=== PATIENT | female | born 1985 | race American Indian/Alaskan Native ===

== ENCOUNTER 2018-04-26 19:02 | Emergency (ER) | payer MEDICAID ==
[2018-04-26 19:49] LABS: Basophils % (Auto) 0.5 % (0.0-1.8); Eosinophils # (Auto) 0.4 K/mm3 (0.0-0.4); Eosinophils % (Auto) 7.4 % (0.0-4.3); Lymphocytes # (Auto) 2.2 K/mm3 (1.2-5.4); Lymphocytes % (Auto) 41.7 % (13.4-35.0); Mean Corpuscular HGB Conc 29 % (30-34); Monocytes # (Auto) 0.5 K/mm3 (0.0-0.8); Monocytes % (Auto) 9.6 % (0.0-7.3); Platelet Count 266 K/mm3 (140-440); Red Blood Count 4.11 M/mm3 (3.65-5.03)
[2018-04-26 19:51] LABS: Hematocrit 27.2 % (30.3-42.9); Hemoglobin 7.9 gm/dl (10.1-14.3); Mean Corpuscular Hemoglobin 19 pg (28-32); Mean Corpuscular Volume 66 fl (79-97); Red Cell Distribution Width 21.5 % (13.2-15.2)
[2018-04-26 20:02] LABS: Alanine Aminotransferase 38 units/L (7-56); Albumin 3.4 g/dL (3.9-5); BUN/Creatinine Ratio 13; Blood Urea Nitrogen 9 mg/dL (7-17); Calcium 8.3 mg/dL (8.4-10.2); Hemolysis Index 12
[2018-04-26] MEDS ORDERED: PERCOCET 5/325 PO ONE (20:36)
[2018-04-26] MEDS ORDERED: ZOFRAN ODT PO ONE (20:36)
--- NOTE | 2018-04-26 20:46 | Emergency Department Report ---
ED General Adult HPI - General Chief complaint: Headache Stated complaint: HEADACHE Time Seen by Provider: 04/26/18 20:27 Source: patient, family Mode of arrival: Ambulatory Limitations: No Limitations - History of Present Illness Initial comments: Ms. Rizvi is a 32-year-old female with history of anemia and dysfunctional uterine bleeding. She also has a history of GERD. 2 years ago she underwent bariatric surgery [id number]. Recently she had blood transfusion at hospital in [facility] 3 weeks ago. She has not followed up regularly with her bariatric surgeon Dr. Escamilla. She has had 3 total blood transfusions. She has migraine global headache. With photophobia, headache is 8 out of 10. She was diagnosised with migraine for several years. She also had a near syncopal episode prior to coming to the ER. She is currently having vaginal spotting. She does not want to take control or hormone therapy. - Related Data Previous Rx's Medication Instructions Recorded Last Taken Type Promethazine [Phenergan TAB] 25 mg PO Q6HR PRN #10 tab 04/26/18 Unknown Rx traMADol [Ultram 50 MG tab] 50 mg PO Q6HR PRN #10 tablet 04/26/18 Unknown Rx Allergies Allergy/AdvReac Type Severity Reaction Status Date / Time metronidazole [From Flagyl] Allergy throat Verified 07/23/17 10:11 itches and closes ED Review of Systems ROS: Stated complaint: HEADACHE Other details as noted in HPI Comment: All other systems reviewed and negative Constitutional: denies: fever, malaise Respiratory: denies: cough Cardiovascular: denies: chest pain ED Past Medical Hx - Past Medical History Previous Medical History?: Yes Hx Hypertension: No Hx GERD: Yes Hx Liver Disease: No Hx Seizures: No Hx Asthma: No Hx HIV: No Additional medical history: Vaginal delivery x 2, Miscarriage - Surgical History Past Surgical History?: Yes Hx Cholecystectomy: Yes Additional Surgical History: Bariatric surgery 2 years ago - Social History Smoking Status: Never Smoker Substance Use Type: None - Medications Home Medications: Home Medications Medication Instructions Recorded Confirmed Last Taken Type Promethazine [Phenergan TAB] 25 mg PO Q6HR PRN #10 tab 04/26/18 Unknown Rx traMADol [Ultram 50 MG tab] 50 mg PO Q6HR PRN #10 tablet 04/26/18 Unknown Rx ED Physical Exam - General Limitations: No Limitations General appearance: alert, in no apparent distress - Head Head exam: Present: atraumatic, normocephalic - Eye Eye exam: Present: normal appearance - ENT ENT exam: Present: mucous membranes moist - Neck Neck exam: Present: normal inspection - Respiratory Respiratory exam: Present: normal lung sounds bilaterally. Absent: respiratory distress, rales, rhonchi - Cardiovascular Cardiovascular Exam: Present: regular rate, normal rhythm, normal heart sounds. Absent: systolic murmur, diastolic murmur, rubs, gallop - GI/Abdominal GI/Abdominal exam: Present: soft, normal bowel sounds. Absent: distended, tenderness, guarding, rebound - Extremities Exam Extremities exam: Present: normal inspection - Back Exam Back exam: Present: normal inspection - Neurological Exam Neurological exam: Present: alert, oriented X3 - Psychiatric Psychiatric exam: Present: normal affect, normal mood - Skin Skin exam: Present: warm, dry, intact, normal color. Absent: rash ED Course Vital Signs 04/26/18 19:20 Temperature 98.1 F Pulse Rate 80 Respiratory 18 Rate Blood Pressure 131/85 O2 Sat by Pulse 99 Oximetry ED Medical Decision Making - Lab Data Result diagrams: 04/26/18 19:30 04/26/18 19:30 Laboratory Results - last 24 hr 04/26/18 04/26/18 04/26/18 19:30 19:30 19:30 WBC 5.2 RBC 4.11 Hgb 7.9 L Hct 27.2 L MCV 66 L MCH 19 L MCHC 29 L RDW 21.5 H Plt Count 266 Lymph % (Auto) 41.7 H Tama % (Auto) 9.6 H Eos % (Auto) 7.4 H Baso % (Auto) 0.5 Lymph # 2.2 Tama # 0.5 Eos # 0.4 Baso # 0.0 Seg Neutrophils % 40.8 Seg Neutrophils # 2.1 Sodium 141 Potassium 3.9 Chloride 106.0 Carbon Dioxide 27 Anion Gap 12 BUN 9 Creatinine 0.7 Estimated GFR > 60 BUN/Creatinine Ratio 13 Glucose 115 H Calcium 8.3 L Total Bilirubin 0.20 AST 49 H ALT 38 Alkaline Phosphatase 83 Total Protein 6.8 Albumin 3.4 L Albumin/Globulin Ratio 1.0 HCG, Qual Negative - Medical Decision Making 1. Migraine headache typical for patient treated with oral medications in the ED. Prescribed promethazine and tramadol. 2. Dysfunctional uterine bleeding: Patient requires follow [facility] to which she was referred. She did not appear to understand or believe that her fertility and risk of has greatly increased since losing over 100 pounds. She repeatedly declined control or burst hormone therapy. I surmise that she is considering having a child with her life partner. 3. Chronic anemia: I reviewed the past lab results since 2014. Hemoglobin 7.9 today is at baseline for patient. Patient also corroborates that this is a normal number hemoglobin level for her. I am concerned that she has not had close follow-up with her bariatric surgeon. She understands she is at risk for severe vitamin deficiency and malnutrition. Critical care attestation.: If time is entered above; I have spent that time in minutes in the direct care of this critically ill patient, excluding procedure time. ED Disposition Clinical Impression: Migraine headache, Anemia, Near syncope Disposition: TO HOME OR SELFCARE Is pt being admited?: No Does the pt Need Aspirin: No Condition: Stable Instructions: Migraine Headache (ED), Near Syncope (ED), Iron Deficiency Anemia (ED) Prescriptions: Promethazine [Phenergan TAB] 25 mg PO Q6HR PRN #10 tab PRN Reason: Nausea traMADol [Ultram 50 MG tab] 50 mg PO Q6HR PRN #10 tablet PRN Reason: Headache Referrals: GREY MOHR MD [Primary Care Provider] - 3-5 Days MELI ESCAMILLA MD [Staff Physician] - 3-5 Days AIDEN GARSIA MD [Staff Physician] - 3-5 Days Time of Disposition: 20:47
[2018-04-26 21:48] VITALS: BP 126/74
== END 2018-04-26 21:48 | disposition home or self-care (01) ==
LOC: ED 19:02
DX: G43.909 Migraine, unspecified, not intractable, without status migrainosus (principal); D64.9 Anemia, unspecified; K21.9 Gastro-esophageal reflux disease without esophagitis; Z88.8 Allergy status to other drugs, medicaments and biological substances
CPT/HCPCS: 36415; 80053; 84703; 85025; 99283; Q0162

== ENCOUNTER 2021-01-06 03:51 | Emergency (ER) | payer MEDICAID ==
[2021-01-06 04:39] VITALS: BP 132/69
[2021-01-06] MEDS ORDERED: IBUPROFEN 800 MG TAB PO ONE (04:40)
--- NOTE | 2021-01-06 04:49 | Emergency Department Report ---
<ALLISON CUEVAS M - Last Filed: 01/06/21 06:12> ED Female HPI - General Chief complaint: Abdominal Pain Stated complaint: ABDOMINAL PAIN Time Seen by Provider: 01/06/21 04:39 - Related Data Previous Rx's Medication Instructions Recorded Last Taken Type Promethazine [Phenergan] 25 mg PO Q6HR PRN #10 tab 04/26/18 Unknown Rx traMADoL [Ultram 50 MG tab] 50 mg PO Q6HR PRN #10 tablet 04/26/18 Unknown Rx Acetaminophen/Codeine [Tylenol 1 tab PO Q4HR PRN #12 tablet 01/06/21 Unknown Rx /Codeine # 3 tab] Doxycycline Hyclate [Doxycycline 100 mg PO Q12HR #14 tab 01/06/21 Unknown Rx Hyclate TAB] Fluconazole (Nf) [Diflucan TAB] 150 mg PO ONCE #3 tablet 01/06/21 Unknown Rx Valacyclovir HCl [Valtrex] 1,000 mg PO BID #14 tablet 01/06/21 Unknown Rx metroNIDAZOLE [metroNIDAZOLE 1 applicator VG QHS 5 Days 01/06/21 Unknown Rx VAGINAL 0.75% gel] gel.w.appl Allergies Allergy/AdvReac Type Severity Reaction Status Date / Time metronidazole [From Flagyl] Allergy throat Verified 07/23/17 10:11 itches and closes ED Past Medical Hx - Medications Home Medications: Home Medications Medication Instructions Recorded Confirmed Last Taken Type Promethazine [Phenergan] 25 mg PO Q6HR PRN #10 tab 04/26/18 06/26/20 Unknown Rx traMADoL [Ultram 50 MG tab] 50 mg PO Q6HR PRN #10 tablet 04/26/18 06/26/20 Unknown Rx Acetaminophen/Codeine [Tylenol 1 tab PO Q4HR PRN #12 tablet 01/06/21 Unknown Rx /Codeine # 3 tab] Doxycycline Hyclate [Doxycycline 100 mg PO Q12HR #14 tab 01/06/21 Unknown Rx Hyclate TAB] Fluconazole (Nf) [Diflucan TAB] 150 mg PO ONCE #3 tablet 01/06/21 Unknown Rx Valacyclovir HCl [Valtrex] 1,000 mg PO BID #14 tablet 01/06/21 Unknown Rx metroNIDAZOLE [metroNIDAZOLE 1 applicator VG QHS 5 Days 01/06/21 Unknown Rx VAGINAL 0.75% gel] gel.w.appl ED Medical Decision Making - Lab Data Laboratory Results - last 24 hr 01/06/21 04:33 Urine HCG, Qual Negative ED Disposition Clinical Impression: Bacterial vaginosis, Genital herpes Disposition: DC-01 TO HOME OR SELFCARE Condition: Stable Instructions: Bacterial Vaginosis, [id number]-[id number], Genital Herpes, Bacterial Vaginosis (ED), Abdominal Pain (ED) Additional Instructions: Take the Valtrex and the doxycycline as prescribed. Use to the metronidazole gel as instructed. I recommend that you follow-up with your TUBE TEST TECHNICIAN for HSV 1 and 2 testing via blood work. Take the pain medication as prescribed. Recommend no sexual contact for 7 days. Your partner may also need to be tested and treated. Return to the ER if your symptoms changes or worsens in any way. Prescriptions: metroNIDAZOLE [metroNIDAZOLE VAGINAL 0.75% gel] 1 applicator VG QHS 5 Days gel.w.appl Fluconazole (Nf) [Diflucan TAB] 150 mg PO ONCE #3 tablet Doxycycline Hyclate [Doxycycline Hyclate TAB] 100 mg PO Q12HR #14 tab Acetaminophen/Codeine [Tylenol /Codeine # 3 tab] 1 tab PO Q4HR PRN #12 tablet PRN Reason: Pain Valacyclovir HCl [Valtrex] 1,000 mg PO BID #14 tablet Referrals: [facility] MD RUBA [Primary Care Provider] - 3-5 Days Forms: STI Treatment and Prevention <BRIAN RODRIGUEZ - Last Filed: 01/06/21 06:48> ED Female HPI - General Source: patient Mode of arrival: Ambulatory Limitations: No Limitations - History of Present Illness Initial comments: 35-year-old female presents to the ER today complaining of a 4-day history of left lower quadrant pain, UTI symptoms, vaginal discharge and a painful vaginal rash. Patient does admit to having a new sexual partner, with recent unprotected sexual intercourse a couple weeks ago. Her last menstrual cycle was November 2020. Complaint: vaginal discharge, dysuria, pelvic pain -: Gradual, days(s) (4) ED Review of Systems ROS: Stated complaint: ABDOMINAL PAIN Other details as noted in HPI Comment: All other systems reviewed and negative Constitutional: denies: chills, fever Eyes: denies: eye pain, eye discharge, vision change Gastrointestinal: abdominal pain. denies: nausea, vomiting, diarrhea, constipation, hematemesis, hematochezia Genitourinary: dysuria, discharge. denies: urgency Musculoskeletal: denies: back pain, joint swelling, arthralgia Skin: rash Neurological: denies: headache, weakness, paresthesias Psychiatric: denies: anxiety, depression ED Past Medical Hx - Past Medical History Previous Medical History?: Yes Hx Hypertension: No Hx Congestive Heart Failure: No Hx Diabetes: No Hx GERD: Yes Hx Liver Disease: No Hx Seizures: No Hx Asthma: No Hx COPD: No Hx HIV: No Additional medical history: Vaginal delivery x 2, Miscarriage. Anemia - Surgical History Past Surgical History?: Yes Hx Cholecystectomy: Yes Additional Surgical History: Bariatric surgery 2 years ago - Social History Smoking Status: Never Smoker Substance Use Type: None ED Physical Exam - General Limitations: No Limitations General appearance: alert, in no apparent distress - Head Head exam: Present: atraumatic, normocephalic, normal inspection - Eye Eye exam: Present: normal appearance, PERRL, EOMI Pupils: Present: normal accommodation - Neck Neck exam: Present: normal inspection - Respiratory Respiratory exam: Present: normal lung sounds bilaterally. Absent: respiratory distress - Cardiovascular Cardiovascular Exam: Present: regular rate, normal rhythm, normal heart sounds - GI/Abdominal GI/Abdominal exam: Present: soft, tenderness (Mild ttp RLQ and suprapubic without guarding or rebound. ). Absent: distended - External exam: Present: lesions (very superficial shallow ulceration noted perineal area; Mod ttp ) Speculum exam: Present: vaginal discharge (Thick white d/c). Absent: erythema, cervical discharge, vaginal bleeding, foreign body, tissue Bi-manual exam: Present: adnexal tenderness - Neurological Exam Neurological exam: Present: alert, oriented X3, CN II-XII intact - Psychiatric Psychiatric exam: Present: normal affect, normal mood - Skin Skin exam: Present: intact ED Course Vital Signs 01/06/21 04:33 Temperature 98.1 F Pulse Rate 78 Respiratory 16 Rate Blood Pressure 132/69 O2 Sat by Pulse 100 Oximetry ED Medical Decision Making - Medical Decision Making 0645 The patient is resting comfortably and feels better, is alert and in no distress. The history, exam, diagnostic testing and current condition do not suggest acute appendicitis, bowel obstruction, acute cholecystitis, bowel perforation, major GI bleed, severe diverticulitis, abdominal aortic aneurysm, mesenteric ischemia, volvulus, PID, tubo-ovarian abscess, ovarian torsion, sepsis or other significant pathology to warrant further testing, continued ED treatment, admission or surgical evaluation at this point. The patient's vital signs have been stable. The patient does not have uncontrollable pain, intractable vomiting or other significant symptoms. The patient's condition is stable and appropriate for discharge from the emergency department. The patient will pursue further outpatient evaluation with the primary care physician or other designated or consulting physician as indicated in the discharge instructions. Critical care attestation.: If time is entered above; I have spent that time in minutes in the direct care of this critically ill patient, excluding procedure time. ED Disposition Is pt being admited?: No Does the pt Need Aspirin: No Time of Disposition: 06:35
[2021-01-06] MEDS ORDERED: LIDOCAINE-MPF (1%) 10 MG/1 ML VIAL 5 ML INFILTRATI ONE (05:22)
[2021-01-06] MEDS ORDERED: ACETAMINOPHEN W/CODEINE 300-30 MG TAB PO ONE (05:22)
[2021-01-06 05:58] LABS: HCG Qualitative,Urine Negative (Negative)
[2021-01-06 06:22] LABS: Color,Urine Yellow (Yellow)
[2021-01-06 06:23] LABS: Bilirubin,Urine Negative (Negative)
[2021-01-06 06:29] LABS: Blood,Urine Negative (Negative)
[2021-01-06 06:40] LABS: Bacteria,Urine 1+ /HPF (Negative); Mucus,Urine FEW /HPF
== END 2021-01-06 06:53 | disposition home or self-care (01) ==
LOC: ED 03:51
DX: N76.0 Acute vaginitis (principal); B96.89 Other specified bacterial agents as the cause of diseases classified elsewhere; A60.00 Herpesviral infection of urogenital system, unspecified; Z90.49 Acquired absence of other specified parts of digestive tract; Z88.8 Allergy status to other drugs, medicaments and biological substances
CPT/HCPCS: 81001; 81025; 87210; 87591; 96372; 99284; J0696

== ENCOUNTER 2021-07-06 23:46 | Emergency (ER) | payer MEDICAID ==
[2021-07-07 01:22] LABS: Alanine Aminotransferase 44 units/L (7-56); Albumin 3.7 g/dL (3.9-5); BUN/Creatinine Ratio 14; Blood Urea Nitrogen 11 mg/dL (7-17); Calcium 7.9 mg/dL (8.4-10.2); Hemolysis Index 0; Mean Corpuscular HGB Conc 28 % (30-34); Platelet Count 669 K/mm3 (140-440); Red Blood Count 2.74 M/mm3 (3.65-5.03)
[2021-07-07 01:28] LABS: Hematocrit 17.2 % (30.3-42.9); Hemoglobin 4.8 gm/dl (10.1-14.3); Mean Corpuscular Volume 63 fl (79-97); Red Cell Distribution Width 35.2 % (13.2-15.2)
[2021-07-07] MEDS ORDERED: SODIUM CHLORIDE 0.9% 500 ML 500 ML IV ONE ×2 (02:49→07:49)
[2021-07-07] MEDS ORDERED: ONDANSETRON 4 MG/2 ML INJ IV PRN (04:10)
[2021-07-07] MEDS ORDERED: MAGNESIUM HYDROXIDE (MOM) ORAL LIQD UDC PO PRN (04:10)
[2021-07-07] MEDS ORDERED: MORPHINE 4 MG/1 ML INJ IV PRN (04:10)
[2021-07-07] MEDS ORDERED: ACETAMINOPHEN 325 MG TAB PO PRN (04:10)
[2021-07-07] MEDS ORDERED: MORPHINE 2 MG/1 ML INJ IV PRN (04:10)
--- NOTE | 2021-07-07 04:21 | History and Physical Report ---
History of Present Illness Date of examination: 07/07/21 Date of admission: 07/07/2021 Chief complaint: Abdominal Pain Dysuria History of present illness: 35-year-old -[place] female with past medical history of GERD presenting to the emergency room today complaining of abdominal pain. Abdominal pain has been ongoing for the past 2 to 3 days. She has also been having some dysuria. Patient states that she just does not feel too well today and has showed occasional shortness of breath and dizziness. She has denied any fall, no headache, no fever or chills, no nausea vomiting, no hematuria, no chest pain, no bright red blood per rectum, no diarrhea, no hematemesis. Patient states that she has had occasional periods of heavy bleeding and also her menstrual. Has been occasionally longer than usual. She has 3 children and denies any history of uterine fibroids, denies any history of nonsteroidal anti-inflammatory use. Patient states that she has had history of anemia in the past and had undergone colonoscopy sometime in 2014 at [facility] but indicates that no abnormalities were detected. Work-up in the emergency room today labs reveals hemoglobin of 4.8 and hematocrit of 17.2. Chemistry has been within normal limits. Urinalysis is still being awaited. Patient has been admitted with symptomatic anemia and will be prepared for blood transfusion. Past History Past Medical History: anemia, GERD Past Surgical History: cholecystectomy, Other (History of gastric bypass) Social history: no significant social history Family history: no significant family history Medications and Allergies Allergies Allergy/AdvReac Type Severity Reaction Status Date / Time metronidazole [From Flagyl] Allergy throat Verified 07/23/17 10:11 itches and closes Home Medications Medication Instructions Recorded Confirmed Last Taken Type Promethazine [Phenergan] 25 mg PO Q6HR PRN #10 tab 04/26/18 06/26/20 Unknown Rx traMADoL [Ultram 50 MG tab] 50 mg PO Q6HR PRN #10 tablet 04/26/18 06/26/20 Unknown Rx Acetaminophen/Codeine [Tylenol 1 tab PO Q4HR PRN #12 tablet 01/06/21 Unknown Rx /Codeine # 3 tab] Doxycycline Hyclate [Doxycycline 100 mg PO Q12HR #14 tab 01/06/21 Unknown Rx Hyclate TAB] Fluconazole (Nf) [Diflucan TAB] 150 mg PO ONCE #3 tablet 01/06/21 Unknown Rx Valacyclovir HCl [Valtrex] 1,000 mg PO BID #14 tablet 01/06/21 Unknown Rx metroNIDAZOLE [metroNIDAZOLE 1 applicator VG QHS 5 Days 01/06/21 Unknown Rx VAGINAL 0.75% gel] gel.w.appl Active Meds: Active Medications Acetaminophen (Acetaminophen 325 Mg Tab) 650 mg PO Q4H PRN PRN Reason: Pain MILD(1-3)/Fever >100.5/MOFFETT Magnesium Hydroxide (Magnesium Hydroxide (Mom) Oral Liqd Udc) 30 ml PO Q4H PRN PRN Reason: Constipation Morphine Sulfate (Morphine 2 Mg/1 Ml Inj) 2 mg IV Q4H PRN PRN Reason: Pain, Moderate (4-6) Morphine Sulfate (Morphine 4 Mg/1 Ml Inj) 4 mg IV Q4H PRN PRN Reason: Pain , Severe (7-10) Ondansetron HCl (Ondansetron 4 Mg/2 Ml Inj) 4 mg IV Q8H PRN PRN Reason: Nausea And Vomiting Sodium Chloride (Sodium Chloride 0.9% 10 Ml Flush Syringe) 10 ml IV BID MITCHEL Sodium Chloride (Sodium Chloride 0.9% 10 Ml Flush Syringe) 10 ml IV PRN PRN PRN Reason: LINE FLUSH Review of Systems Constitutional: weakness, no fever, no chills Ears, nose, mouth and throat: no nasal congestion, no sore throat Cardiovascular: lightheadedness, no chest pain, no palpitations Respiratory: shortness of breath, no cough Gastrointestinal: abdominal pain, no nausea, no vomiting, no diarrhea, no hematemesis, no coffee ground emesis, no BRBPR, no melena Genitourinary Female: dysuria, no flank pain, no urinary frequency, no hematuria Menstruation: period heavy (Occasionally) Rectal: no bleeding Musculoskeletal: no neck pain, no low back pain Integumentary: no rash, no pruritis Neurological: no headaches, no confusion Psychiatric: no anxiety, no depression Endocrine: no polydipsia, no polyuria, no nocturia Exam - Constitutional Vitals: Temp Pulse Resp BP Pulse Ox 98.3 F 69 20 101/43 100 07/07/21 00:25 07/07/21 03:59 07/07/21 04:01 07/07/21 03:59 07/07/21 04:01 General appearance: Present: no acute distress, well-nourished, other (Moderate pallor) - EENT Eyes: Present: PERRL, EOM intact. Absent: scleral icterus ENT: hearing intact, clear oral mucosa, dentition normal - Neck Neck: Present: supple, normal ROM - Respiratory Respiratory effort: normal Respiratory: bilateral: CTA - Cardiovascular Rhythm: regular Heart Sounds: Present: S1 & S2, systolic murmur (Soft systolic murmur). Absent: gallop, diastolic murmur, rub, click - Extremities Extremities: no ischemia, pulses intact, pulses symmetrical, No edema, normal temperature, normal color, Full ROM Peripheral Pulses: within normal limits - Abdominal General gastrointestinal: Present: soft, tender (Mild suprapubic tenderness, no rebound tenderness, no masses), non-distended, normal bowel sounds. Absent: mass - Integumentary Integumentary: Present: clear, warm, dry, normal turgor. Absent: rash - Musculoskeletal Musculoskeletal: strength equal bilaterally - Psychiatric Psychiatric: appropriate mood/affect, intact judgment & insight, memory intact, cooperative - Neurologic Neurologic: CNII-XII intact, no focal deficits, moves all extremities Results - Labs CBC & Chem 7: 07/07/21 00:30 07/07/21 00:30 Labs: Abnormal lab results 07/07/21 07/07/21 07/07/21 Range/Units 00:30 00:30 03:10 RBC 2.74 L (3.65-5.03) M/mm3 Hgb 4.8 L* (10.1-14.3) gm/dl Hct 17.2 L* (30.3-42.9) % MCV 63 L (79-97) fl MCH 18 L (28-32) pg MCHC 28 L (30-34) % RDW 35.2 H (13.2-15.2) % Plt Count 669 H (140-440) K/mm3 Calcium 7.9 L (8.4-10.2) mg/dL Albumin 3.7 L (3.9-5) g/dL Crossmatch See Detail Assessment and Plan - Patient Problems (1) Symptomatic anemia Current Visit: Yes Status: Acute Plan to address problem: Macrocytic in nature. Etiology is unclear. She has declined a rectal exam. Will check stool Hemoccult. We will also schedule for pelvic ultrasound. Patient will be scheduled for blood transfusion. Consult placed to gastroenterology for evaluation and recommendation. (2) DVT prophylaxis Current Visit: Yes Status: Acute Plan to address problem: Patient placed on sequential compression device. (3) Full code status Current Visit: Yes Status: Acute Plan to address problem: Patient is full code.
--- NOTE | 2021-07-07 04:22 | Emergency Department Report ---
ED Abdominal Pain HPI - General Chief Complaint: Abdominal Pain Stated Complaint: AB DPAIN,CHEST PAIN,BLURRED VISON Time Seen by Provider: 07/07/21 02:39 Source: patient Mode of arrival: Ambulatory Limitations: No Limitations - History of Present Illness Initial Comments: Patient is a 35-year-old F Tongan female with no significant past medical history who is presenting with some lower abdominal discomfort. Patient states that lower abdominal discomfort has been present for the last 2 to 3 days. States there is some mild dysuria. No vaginal discharge or vaginal bleeding. Patient also notes earlier today she has some mild shortness of breath and some chest discomfort as well. She has been feeling some weakness and dizziness as well. Patient is denying any bloody stools melena nausea or vomiting heavy periods. Patient is not having any menstrual bleeding at this time. Severity scale (0 -10): 8 - Related Data Previous Rx's Medication Instructions Recorded Last Taken Type Promethazine [Phenergan] 25 mg PO Q6HR PRN #10 tab 04/26/18 Unknown Rx traMADoL [Ultram 50 MG tab] 50 mg PO Q6HR PRN #10 tablet 04/26/18 Unknown Rx Acetaminophen/Codeine [Tylenol 1 tab PO Q4HR PRN #12 tablet 01/06/21 Unknown Rx /Codeine # 3 tab] Doxycycline Hyclate [Doxycycline 100 mg PO Q12HR #14 tab 01/06/21 Unknown Rx Hyclate TAB] Fluconazole (Nf) [Diflucan TAB] 150 mg PO ONCE #3 tablet 01/06/21 Unknown Rx Valacyclovir HCl [Valtrex] 1,000 mg PO BID #14 tablet 01/06/21 Unknown Rx metroNIDAZOLE [metroNIDAZOLE 1 applicator VG QHS 5 Days 01/06/21 Unknown Rx VAGINAL 0.75% gel] gel.w.appl Allergies Allergy/AdvReac Type Severity Reaction Status Date / Time metronidazole [From Flagyl] Allergy throat Verified 07/23/17 10:11 itches and closes ED Review of Systems ROS: Stated complaint: AB DPAIN,CHEST PAIN,BLURRED VISON Other details as noted in HPI Comment: All other systems reviewed and negative ED Past Medical Hx - Past Medical History Previous Medical History?: Yes Hx Hypertension: No Hx Congestive Heart Failure: No Hx Diabetes: No Hx GERD: Yes Hx Liver Disease: No Hx Seizures: No Hx Asthma: No Hx COPD: No Hx HIV: No Additional medical history: Vaginal delivery x 2, Miscarriage. Anemia - Surgical History Past Surgical History?: Yes Hx Cholecystectomy: Yes Additional Surgical History: Bariatric surgery 2 years ago - Social History Smoking Status: Never Smoker Substance Use Type: None - Medications Home Medications: Home Medications Medication Instructions Recorded Confirmed Last Taken Type Promethazine [Phenergan] 25 mg PO Q6HR PRN #10 tab 04/26/18 06/26/20 Unknown Rx traMADoL [Ultram 50 MG tab] 50 mg PO Q6HR PRN #10 tablet 04/26/18 06/26/20 Unknown Rx Acetaminophen/Codeine [Tylenol 1 tab PO Q4HR PRN #12 tablet 01/06/21 Unknown Rx /Codeine # 3 tab] Doxycycline Hyclate [Doxycycline 100 mg PO Q12HR #14 tab 01/06/21 Unknown Rx Hyclate TAB] Fluconazole (Nf) [Diflucan TAB] 150 mg PO ONCE #3 tablet 01/06/21 Unknown Rx Valacyclovir HCl [Valtrex] 1,000 mg PO BID #14 tablet 01/06/21 Unknown Rx metroNIDAZOLE [metroNIDAZOLE 1 applicator VG QHS 5 Days 01/06/21 Unknown Rx VAGINAL 0.75% gel] gel.w.appl ED Physical Exam - General Limitations: No Limitations General appearance: alert, in no apparent distress - Head Head exam: Present: atraumatic, normocephalic - Eye Eye exam: Present: normal appearance, PERRL, EOMI - ENT ENT exam: Present: mucous membranes moist - Neck Neck exam: Present: normal inspection - Respiratory Respiratory exam: Present: normal lung sounds bilaterally. Absent: respiratory distress, wheezes, rales, rhonchi - Cardiovascular Cardiovascular Exam: Present: regular rate, normal rhythm, normal heart sounds. Absent: systolic murmur, diastolic murmur, rubs, gallop - GI/Abdominal GI/Abdominal exam: Present: soft, tenderness (suprapubic pain), normal bowel sounds. Absent: distended, guarding, rebound - Extremities Exam Extremities exam: Present: normal inspection - Back Exam Back exam: Present: normal inspection - Neurological Exam Neurological exam: Present: alert, oriented X3 - Psychiatric Psychiatric exam: Present: normal affect, normal mood - Skin Skin exam: Present: warm, dry, intact, normal color. Absent: rash ED Course Vital Signs 07/07/21 07/07/21 07/07/21 00:25 03:59 04:01 Temperature 98.3 F Pulse Rate 68 69 Respiratory 18 20 20 Rate Blood Pressure 107/43 Blood Pressure 101/43 [Left] O2 Sat by Pulse 100 100 100 Oximetry ED Medical Decision Making - Lab Data Result diagrams: 07/07/21 00:30 07/07/21 00:30 Lab Results 07/07/21 07/07/21 07/07/21 Range/Units 00:30 00:30 00:30 WBC 6.7 (4.5-11.0) K/mm3 RBC 2.74 L (3.65-5.03) M/mm3 Hgb 4.8 L* (10.1-14.3) gm/dl Hct 17.2 L* (30.3-42.9) % MCV 63 L (79-97) fl MCH 18 L (28-32) pg MCHC 28 L (30-34) % RDW 35.2 H (13.2-15.2) % Plt Count 669 H (140-440) K/mm3 Sodium 138 (137-145) mmol/L Potassium 4.1 (3.6-5.0) mmol/L Chloride 106.6 (98-107) mmol/L Carbon Dioxide 23 (22-30) mmol/L Anion Gap 13 mmol/L BUN 11 (7-17) mg/dL Creatinine 0.8 (0.6-1.2) mg/dL Estimated GFR > 60 ml/min BUN/Creatinine Ratio 14 % Glucose 85 (65-100) mg/dL Calcium 7.9 L (8.4-10.2) mg/dL Total Bilirubin 0.40 (0.1-1.2) mg/dL AST 35 (5-40) units/L ALT 44 (7-56) units/L Alkaline Phosphatase 118 (35-129) units/L Total Protein 6.9 (6.3-8.2) g/dL Albumin 3.7 L (3.9-5) g/dL Albumin/Globulin Ratio 1.2 % Lipase 18 (13-60) units/L HCG, Qual Negative (Negative) Blood Type Crossmatch 07/07/21 Range/Units 03:10 WBC (4.5-11.0) K/mm3 RBC (3.65-5.03) M/mm3 Hgb (10.1-14.3) gm/dl Hct (30.3-42.9) % MCV (79-97) fl MCH (28-32) pg MCHC (30-34) % RDW (13.2-15.2) % Plt Count (140-440) K/mm3 Sodium (137-145) mmol/L Potassium (3.6-5.0) mmol/L Chloride (98-107) mmol/L Carbon Dioxide (22-30) mmol/L Anion Gap mmol/L BUN (7-17) mg/dL Creatinine (0.6-1.2) mg/dL Estimated GFR ml/min BUN/Creatinine Ratio % Glucose (65-100) mg/dL Calcium (8.4-10.2) mg/dL Total Bilirubin (0.1-1.2) mg/dL AST (5-40) units/L ALT (7-56) units/L Alkaline Phosphatase (35-129) units/L Total Protein (6.3-8.2) g/dL Albumin (3.9-5) g/dL Albumin/Globulin Ratio % Lipase (13-60) units/L HCG, Qual (Negative) Blood Type A POSITIVE Crossmatch See Detail - EKG Data -: EKG Interpreted by Me EKG shows normal: sinus rhythm, axis, intervals, QRS complexes, ST-T waves Rate: normal - EKG Data Interpretation: normal EKG - Medical Decision Making Patient is a 35-year-old F Tongan female presenting with some low abdominal discomfort. Hemoglobin noted to be 4.8. Patient states she is very cold does have some fatigue. Per history patient does not have any obvious historical findings consistent with bleeding. States there is no melena or bright red blo od per rectum. She states she does not have heavy menses. The patient's lower abdominal discomfort most consistent with a UTI since she has some dysuria. She has not noticed any blood in her urine. Patient was a very difficult stick. Did have to use ultrasound to get a IV on the patient. 2 attempts were made by myself. Patient is very angry about having to be stuck that many times. Patient have very brittle veins. Patient refused rectal exam. Patient also is refusing to give urine sample at the time of admission. Spoke with hospitalist and we have agreed that the patient does need to be admitted for observation. Critical care attestation.: If time is entered above; I have spent that time in minutes in the direct care of this critically ill patient, excluding procedure time. ED Disposition Clinical Impression: Symptomatic anemia Disposition: DC- TO HOME OR SELFCARE Is pt being admited?: Yes Does the pt Need Aspirin: No Condition: Stable Instructions: Abdominal Pain (ED) Referrals: PRIMARY CARE, [Primary Care Provider] - 3-5 Days
[2021-07-07] MEDS ORDERED: SODIUM CHLORIDE 0.9% 500 ML 500 ML ONE (05:19)
[2021-07-07 07:03] LABS: Bilirubin,Urine NEG (Negative); Blood,Urine NEG (Negative); Color,Urine Yellow (Yellow); Mucus,Urine FEW /HPF; Protein,Urine <15 mg/dL mg/dL (Negative); Urobilinogen,Urine < 2.0 mg/dL (<2.0)
[2021-07-07 07:13] LABS: Total Cells Counted 100
[2021-07-07 07:14] LABS: Anisocytosis 2+; Hypochromasia 2+; Platelet Estimate Consistent w Auto
--- NOTE | 2021-07-07 07:57 | Ultrasound Report ---
ULTRASOUND PELVIS INDICATION: Anemia, R/O Uterine fibroid. TECHNIQUE: Transabdominal. Duplex Color Doppler used: Yes. COMPARISON: None available FINDINGS: Uterus: Present. Size: 7.2 x 4.6 x 5.9 cm. Endometrial complex: Not well evaluated. Mass lesions: None. Additional findings: None. Right Ovary --nonvisualized. Left Ovary--nonvisualized. Urinary Bladder: Normal. Free Fluid: None. Additional Findings: None. IMPRESSION: 1. Uterus grossly unremarkable. Transvaginal exam cannot be performed. 2. Ovaries not visualized. No adnexal abnormality identified. Signer Name: Eyad Woods MD Signed: 07/07/2021 7:53 AM Workstation Name: [id number]
--- NOTE | 2021-07-07 12:18 | Gastroenterology Consultation ---
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 Noted to be anemic with hgb down to 4.8. GI c onsulted for evaluation for anemia. She denies any blood in the stools, melena, or vomiting blood. She had one episode of emesis yesterday. Reports suprapubic pain with dysuria along with vaginal itching. She had last menstrual period 2-3 weeks ago and occasional periods can be heavy. She states she follows with Dr. Goss, outpatient GI clinic and had colonoscopy earlier this year and told it was normal. No prior EGD. She is taking multivitamin. Has not been seeing utility mechanic. Of note, she had similar admission in 2019 for symptomatic anemia with hgb down to 4.3 but no overt GI bleeding symptoms at that time. She reports following up with Dr. Goss after that. Per chart review, she had a sleeve gastrectomy in the past but due to GERD she is now s/p lap Gastro J revision and lengthening of the biliopancreatic limb with Dr. Escamilla in 2017. medication list reviewed. Past History Past Medical History: anemia, GERD Past Surgical History: cholecystectomy, Other (History of gastric bypass) Social history: no significant social history Family history: no significant family history Medications and Allergies Allergies Allergy/AdvReac Type Severity Reaction Status Date / Time metronidazole [From Flagyl] Allergy throat Verified 07/23/17 10:11 itches and closes Home Medications Medication Instructions Recorded Confirmed Last Taken Type Promethazine [Phenergan] 25 mg PO Q6HR PRN #10 tab 04/26/18 06/26/20 Unknown Rx traMADoL [Ultram 50 MG tab] 50 mg PO Q6HR PRN #10 tablet 04/26/18 06/26/20 Unknown Rx Acetaminophen/Codeine [Tylenol 1 tab PO Q4HR PRN #12 tablet 01/06/21 Unknown Rx /Codeine # 3 tab] Doxycycline Hyclate [Doxycycline 100 mg PO Q12HR #14 tab 01/06/21 Unknown Rx Hyclate TAB] Fluconazole (Nf) [Diflucan TAB] 150 mg PO ONCE #3 tablet 01/06/21 Unknown Rx Valacyclovir HCl [Valtrex] 1,000 mg PO BID #14 tablet 01/06/21 Unknown Rx metroNIDAZOLE [metroNIDAZOLE 1 applicator VG QHS 5 Days 01/06/21 Unknown Rx VAGINAL 0.75% gel] gel.w.appl Active Meds: Active Medications Acetaminophen (Acetaminophen 325 Mg Tab) 650 mg PO Q4H PRN PRN Reason: Pain MILD(1-3)/Fever >100.5/MOFFETT Last Admin: 07/07/21 08:44 Dose: 650 mg Documented by: Magnesium Hydroxide (Magnesium Hydroxide (Mom) Oral Liqd Udc) 30 ml PO Q4H PRN PRN Reason: Constipation Morphine Sulfate (Morphine 2 Mg/1 Ml Inj) 2 mg IV Q4H PRN PRN Reason: Pain, Moderate (4-6) Morphine Sulfate (Morphine 4 Mg/1 Ml Inj) 4 mg IV Q4H PRN PRN Reason: Pain , Severe (7-10) Ondansetron HCl (Ondansetron 4 Mg/2 Ml Inj) 4 mg IV Q8H PRN PRN Reason: Nausea And Vomiting Sodium Chloride (Sodium Chloride 0.9% 10 Ml Flush Syringe) 10 ml IV BID MITCHEL Sodium Chloride (Sodium Chloride 0.9% 10 Ml Flush Syringe) 10 ml IV PRN PRN PRN Reason: LINE FLUSH Review of Systems - Review of Systems All systems: negative Constitutional: weakness Ears, Nose, Throat: no difficulty swallowing Cardiovascular: no chest pain Respiratory: shortness of breath Gastrointestinal: abdominal pain, nausea, vomiting, no diarrhea, no constipation, no change in bowel habits, no hematemesis, no coffee ground emesis, no BRBPR, no melena, no hematochezia Musculoskeletal: no joint pain Neurological: weakness Exam - Constitutional Vital Signs: Temp Pulse Resp BP Pulse Ox 98.0 F 71 14 114/59 100 07/07/21 11:07 07/07/21 12:00 07/07/21 12:00 07/07/21 12:00 07/07/21 12:00 General appearance: no acute distress - EENT ENT: hearing intact - Respiratory Respiratory effort: normal - Cardiovascular Rhythm: regular Heart Sounds: Present: S1 & S2 - Gastrointestinal General gastrointestinal: Present: soft, non-tender, non-distended - Integumentary Integumentary: Present: clear - Neurologic Neurological: alert and oriented x3 - Labs CBC & Chem 7: 07/07/21 00:30 07/07/21 00:30 Lab Results: Laboratory Results - last 24 hr 07/07/21 07/07/21 07/07/21 00:30 00:30 00:30 WBC 6.7 RBC 2.74 L Hgb 4.8 L* Hct 17.2 L* MCV 63 L MCH 18 L MCHC 28 L RDW 35.2 H Plt Count 669 H Add Manual Diff Complete Total Counted 100 Seg Neuts % (Manual) 53.0 Lymphocytes % (Manual) 35.0 Monocytes % (Manual) 6.0 Eosinophils % (Manual) 6.0 H Nucleated RBC % Not Reportable Seg Neutrophils # Man 3.6 Band Neutrophils # 0.0 Lymphocytes # (Manual) 2.3 Abs React Lymphs (Man) 0.0 Monocytes # (Manual) 0.4 Eosinophils # (Manual) 0.4 Basophils # (Manual) 0.0 Metamyelocytes # 0.0 Myelocytes # 0.0 Promyelocytes # 0.0 Blast Cells # 0.0 WBC Morphology Not Reportable Hypersegmented Neuts Not Reportable Hyposegmented Neuts Not Reportable Hypogranular Neuts Not Reportable Smudge Cells Not Reportable Toxic Granulation Not Reportable Toxic Vacuolation Not Reportable Dohle Bodies Not Reportable Pelger-Huet Anomaly Not Reportable Yoly Rods Not Reportable Platelet Estimate Consistent w auto Clumped Platelets Not Reportable Plt Clumps, EDTA Not Reportable Large Platelets Not Reportable Giant Platelets Not Reportable Platelet Satelliting Not Reportable Plt Morphology Comment Not Reportable RBC Morphology Not Reportable Dimorphic RBCs Not Reportable Polychromasia Not Reportable Hypochromasia 2+ Poikilocytosis Not Reportable Anisocytosis 2+ Microcytosis 1+ Macrocytosis Not Reportable Spherocytes Not Reportable Pappenheimer Bodies Not Reportable Sickle Cells Not Reportable Target Cells Not Reportable Tear Drop Cells Not Reportable Ovalocytes Not Reportable Helmet Cells Not Reportable [place] Bodies Not Reportable [place] Rings Not Reportable [place] Cells Not Reportable Bite Cells Not Reportable Crenated Cell Not Reportable Elliptocytes Not Reportable Acanthocytes (Spur) Not Reportable Rouleaux Not Reportable Hemoglobin C Crystals Not Reportable Schistocytes Not Reportable Malaria parasites Not Reportable Luis Bodies Not Reportable Hem Pathologist Commnt No Sodium 138 Potassium 4.1 Chloride 106.6 Carbon Dioxide 23 Anion Gap 13 BUN 11 Creatinine 0.8 Estimated GFR > 60 BUN/Creatinine Ratio 14 Glucose 85 Calcium 7.9 L Total Bilirubin 0.40 AST 35 ALT 44 Alkaline Phosphatase 118 Total Protein 6.9 Albumin 3.7 L Albumin/Globulin Ratio 1.2 Lipase 18 HCG, Qual Negative Urine Color Urine Turbidity Urine pH Ur Specific [place] Urine Protein Urine Glucose (UA) Urine Ketones Urine Blood Urine Nitrite Urine Bilirubin Urine Urobilinogen Ur Leukocyte Esterase Urine WBC (Auto) Urine RBC (Auto) U Epithel Cells (Auto) Urine Mucus Blood Type Antibody Screen Crossmatch 07/07/21 07/07/21 03:10 05:35 WBC RBC Hgb Hct MCV MCH MCHC RDW Plt Count Add Manual Diff Total Counted Seg Neuts % (Manual) Lymphocytes % (Manual) Monocytes % (Manual) Eosinophils % (Manual) Nucleated RBC % Seg Neutrophils # Man Band Neutrophils # Lymphocytes # (Manual) Abs React Lymphs (Man) Monocytes # (Manual) Eosinophils # (Manual) Basophils # (Manual) Metamyelocytes # Myelocytes # Promyelocytes # Blast Cells # WBC Morphology Hypersegmented Neuts Hyposegmented Neuts Hypogranular Neuts Smudge Cells Toxic Granulation Toxic Vacuolation Dohle Bodies Pelger-Huet Anomaly Yoly Rods Platelet Estimate Clumped Platelets Plt Clumps, EDTA Large Platelets Giant Platelets Platelet Satelliting Plt Morphology Comment RBC Morphology Dimorphic RBCs Polychromasia Hypochromasia Poikilocytosis Anisocytosis Microcytosis Macrocytosis Spherocytes Pappenheimer Bodies Sickle Cells Target Cells Tear Drop Cells Ovalocytes Helmet Cells [place] Bodies [place] Rings [place] Cells Bite Cells Crenated Cell Elliptocytes Acanthocytes (Spur) Rouleaux Hemoglobin C Crystals Schistocytes Malaria parasites Luis Bodies Hem Pathologist Commnt Sodium Potassium Chloride Carbon Dioxide Anion Gap BUN Creatinine Estimated GFR BUN/Creatinine Ratio Glucose Calcium Total Bilirubin AST ALT Alkaline Phosphatase Total Protein Albumin Albumin/Globulin Ratio Lipase HCG, Qual Urine Color Yellow Urine Turbidity Clear Urine pH 6.0 Ur Specific [place] 1.018 Urine Protein <15 mg/dl Urine Glucose (UA) Neg Urine Ketones Neg Urine Blood Neg Urine Nitrite Neg Urine Bilirubin Neg Urine Urobilinogen < 2.0 Ur Leukocyte Esterase Neg Urine WBC (Auto) 3.0 Urine RBC (Auto) 2.0 U Epithel Cells (Auto) 6.0 Urine Mucus Few Blood Type A POSITIVE Antibody Screen Negative Crossmatch See Detail Assessment and Plan This is a 35 yo female with pmh of GERD, chronic anemia, h/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 Noted to be anemic with hgb down to 4.8. GI con sulted for evaluation for anemia. # Symptomatic anemia - microcytic anemia, acute on chronic - no overt GI bleeding symptoms. - per patient, recent outpatient colonoscopy with Dr. Ana Paula barron. - discussed inpatient stay with EGD to rule out upper GI bleeding source, patient refuses to stay for it and does not want to be admitted. She would rather follow up with her outpatient GI doctor. - advised that she needs to be on iron supplements and may need IV iron infusion. - need to follow up with hematology. - suspect iron deficiency due to h/o gastric bypass and poor absorption and possible heavy menstrual periods. - if she stay for admission, will plan for EGD on Thursday. Keep NPO Mn. - Patient Problems (1) Symptomatic anemia Current Visit: Yes Status: Acute
--- NOTE | 2021-07-07 13:08 | Event Note ---
Date: 07/07/21 Patient seen and examined This is the second visit after midnight This is a 35 yo female with pmh of GERD, chronic anemia, h/o lap gastro J revisi on of prior sleeve gastrectomy presenting to the ED for weakness, subprapubic pain, and dizziness. Noted to be anemic with hgb down to 4.8. Ordered for 2 units of packed RBC GI consulted, no overt active GI bleed Plan for EGD tomorrow
--- NOTE | 2021-07-07 13:39 | Electrocardiograph Report ---
[facility] Test Date: 2021-07-07 Test Time: 00:43:57 Pat Name: JESSICA KNIGHT Department: Room: [place] [address] Gender: F [employer] Rep[employer]r: LOLI : 1985 Requested By: MARY MAURER Order Number: [id number] Reading MD: Claudy Mace Measurements Intervals [place] Rate: 69 P: 57 IA: 151 QRS: 44 QRSD: 82 T: 42 QT: 409 QTc: 438 Interpretive Statements Sinus rhythm No previous ECG available for comparison Electronically Signed On 07-07-2021 13:38:29 EDT by Claudy Mace
[2021-07-07 15:34] VITALS: BP 111/53
[2021-07-07 16:21] LABS: Hematocrit 21.7 % (30.3-42.9); Hemoglobin 6.6 gm/dl (10.1-14.3)
== END 2021-07-08 00:31 | disposition home or self-care (01) ==
LOC: ED 23:46 → UNDOADMOB 07-07 04:10 → 3A 07-07 04:10 → 4A 07-07 20:37 → ED 07-08 00:31
DX: D64.9 Anemia, unspecified (principal); K21.9 Gastro-esophageal reflux disease without esophagitis; Z88.1 Allergy status to other antibiotic agents; Z98.890 Other specified postprocedural states
CPT/HCPCS: 36415; 36430; 76857; 80053; 81001; 83690; 84703; 85007; 85014; 85018; 85025; 86850; 86900; 86901; 86920; 93005; 96360; 96361; 99284; J7040; P9016

== ENCOUNTER 2022-06-17 21:09 | Emergency (ER) | payer MEDICAID ==
[2022-06-18] MEDS ORDERED: SODIUM CHLORIDE 0.9% 1000 ML 1,000 ML IV ONE (09:39)
[2022-06-18 10:14] LABS: HCG Qualitative,Urine Negative (Negative)
[2022-06-18 10:15] LABS: Mean Corpuscular HGB Conc 28 % (30-34); Platelet Count 462 K/mm3 (140-440); Red Blood Count 3.03 M/mm3 (3.65-5.03)
[2022-06-18 10:23] LABS: Hematocrit 18.1 % (30.3-42.9); Mean Corpuscular Volume 60 fl (79-97); Red Cell Distribution Width 28.3 % (13.2-15.2)
[2022-06-18 10:29] LABS: Alanine Aminotransferase 25 units/L (7-56); Albumin 3.4 g/dL (3.9-5); Blood Urea Nitrogen 7 mg/dL (7-17); Calcium 8.1 mg/dL (8.4-10.2); Hemolysis Index 0
[2022-06-18 10:33] LABS: Bilirubin,Urine Negative (Negative); Color,Urine Yellow (Yellow)
[2022-06-18 10:34] LABS: Blood,Urine Negative (Negative); Urobilinogen,Urine < 2.0 mg/dL (<2.0)
[2022-06-18] MEDS ORDERED: SODIUM CHLORIDE 0.9% 500 ML 500 ML IV ONE ×2 (10:34→12:34)
--- NOTE | 2022-06-18 10:38 | Emergency Department Report ---
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 She states that she has been getting progressively weaker over the past several days. She states that she had the same type of symptoms about a year ago when she was anemic. She states that she had her period 2 weeks ago and her period was very heavy and lasted 7 to 8 days. She states that she has a history of recently diagnosed fibroids that her TALENT DEVELOPMENT MANAGER told her is probably the source of her increased vaginal bleeding. She states that she is scheduled to follow-up with her TALENT DEVELOPMENT MANAGER and GI doctor in the next week. MD Complaint: generalized weakness -: Gradual, days(s) (4-5) Location: other (Left lower quadrant) Severity: moderate Severity scale (0 -10): 5 Quality: aching Consistency: intermittent Associated Symptoms: chest pain. denies: confusion, dark stools, diaphoresis, dysuria, easy bruising, fever/chills, headaches, loss of appetite, nausea/vomiting, myalgias, rash, shortness of breath, syncope - Related Data Previous Rx's Medication Instructions Recorded Last Taken Type Promethazine [Phenergan] 25 mg PO Q6HR PRN #10 tab 04/26/18 Unknown Rx traMADoL [Ultram 50 MG tab] 50 mg PO Q6HR PRN #10 tablet 04/26/18 Unknown Rx Acetaminophen/Codeine [Tylenol 1 tab PO Q4HR PRN #12 tablet 01/06/21 Unknown Rx /Codeine # 3 tab] Doxycycline Hyclate [Doxycycline 100 mg PO Q12HR #14 tab 01/06/21 Unknown Rx Hyclate TAB] Fluconazole (Nf) [Diflucan TAB] 150 mg PO ONCE #3 tablet 01/06/21 Unknown Rx Valacyclovir HCl [Valtrex] 1,000 mg PO BID #14 tablet 01/06/21 Unknown Rx metroNIDAZOLE [metroNIDAZOLE 1 applicator VG QHS 5 Days 01/06/21 Unknown Rx VAGINAL 0.75% gel] gel.w.appl Allergies Allergy/AdvReac Type Severity Reaction Status Date / Time metronidazole [From Flagyl] Allergy throat Verified 07/23/17 10:11 itches and closes ED Review of Systems ROS: Stated complaint: ABD PAIN,WEAKNESS,CHEST PAIN Other details as noted in HPI Comment: All other systems reviewed and negative Constitutional: weakness. denies: chills, fever, malaise Eyes: denies: eye pain, eye discharge, vision change ENT: denies: throat pain, congestion Respiratory: denies: cough, orthopnea, shortness of breath, SOB with exertion, SOB at rest, stridor, wheezing Cardiovascular: chest pain. denies: palpitations, dyspnea on exertion, orthopnea, edema, syncope, paroxysmal nocturnal dyspnea Gastrointestinal: abdominal pain. denies: nausea, vomiting, diarrhea, hematemesis, melena, hematochezia Genitourinary: denies: urgency, dysuria Musculoskeletal: denies: back pain Neurological: denies: headache, weakness ED Past Medical Hx - Past Medical History Previous Medical History?: Yes Hx Hypertension: No Hx Congestive Heart Failure: No Hx Diabetes: No Hx GERD: Yes Hx Liver Disease: No Hx Seizures: No Hx Psychiatric Treatment: Yes (anxiety, depression) Hx Asthma: Yes Hx COPD: No Hx HIV: No Additional medical history: Vaginal delivery x 2, Miscarriage. Anemia - Surgical History Past Surgical History?: Yes Hx Cholecystectomy: Yes Additional Surgical History: Bariatric surgery 2 years ago - Social History Smoking Status: Never Smoker Substance Use Type: None - Medications Home Medications: Home Medications Medication Instructions Recorded Confirmed Last Taken Type Promethazine [Phenergan] 25 mg PO Q6HR PRN #10 tab 04/26/18 06/26/20 Unknown Rx traMADoL [Ultram 50 MG tab] 50 mg PO Q6HR PRN #10 tablet 04/26/18 06/26/20 Unknown Rx Acetaminophen/Codeine [Tylenol 1 tab PO Q4HR PRN #12 tablet 01/06/21 Unknown Rx /Codeine # 3 tab] Doxycycline Hyclate [Doxycycline 100 mg PO Q12HR #14 tab 01/06/21 Unknown Rx Hyclate TAB] Fluconazole (Nf) [Diflucan TAB] 150 mg PO ONCE #3 tablet 01/06/21 Unknown Rx Valacyclovir HCl [Valtrex] 1,000 mg PO BID #14 tablet 01/06/21 Unknown Rx metroNIDAZOLE [metroNIDAZOLE 1 applicator VG QHS 5 Days 01/06/21 Unknown Rx VAGINAL 0.75% gel] gel.w.appl ED Physical Exam - General Limitations: No Limitations General appearance: alert, in no apparent distress - Head Head exam: Present: atraumatic, normocephalic - Eye Eye exam: Present: normal appearance. Absent: scleral icterus, conjunctival injection, periorbital swelling, periorbital tenderness - ENT ENT exam: Present: normal exam - Neck Neck exam: Present: normal inspection, tenderness, full ROM. Absent: lymphadenopathy - Respiratory Respiratory exam: Present: normal lung sounds bilaterally. Absent: respiratory distress, wheezes, rales, rhonchi, stridor, chest wall tenderness - Cardiovascular Cardiovascular Exam: Present: regular rate, normal heart sounds - GI/Abdominal GI/Abdominal exam: Present: soft, normal bowel sounds. Absent: distended, tenderness, guarding, rebound, rigid - Extremities Exam Extremities exam: Present: normal inspection, full ROM, normal capillary refill. Absent: tenderness, pedal edema, joint swelling, calf tenderness - Neurological Exam Neurological exam: Present: alert, oriented X3 - Psychiatric Psychiatric exam: Present: normal affect, normal mood - Skin Skin exam: Present: warm, dry, intact, normal color ED Course Vital Signs 06/17/22 06/18/22 06/18/22 22:01 11:59 12:01 Temperature 98.7 F Pulse Rate 73 69 66 Respiratory 16 14 10 L Rate Blood Pressure 115/44 99/48 99/48 O2 Sat by Pulse 100 98 93 Oximetry 06/18/22 06/18/22 06/18/22 12:31 13:01 13:30 Temperature Pulse Rate 69 65 82 Respiratory 17 16 17 Rate Blood Pressure 98/51 100/49 100/49 O2 Sat by Pulse 99 100 Oximetry 06/18/22 06/18/22 06/18/22 13:53 14:00 14:15 Temperature Pulse Rate 62 64 64 Respiratory 13 13 13 Rate Blood Pressure 100/49 106/67 106/67 O2 Sat by Pulse 100 99 100 Oximetry 06/18/22 06/18/22 06/18/22 14:31 14:45 15:01 Temperature Pulse Rate 66 63 62 Respiratory 11 L 14 13 Rate Blood Pressure 100/49 116/56 108/57 O2 Sat by Pulse 100 100 100 Oximetry 06/18/22 06/18/22 06/18/22 15:15 15:31 15:45 Temperature Pulse Rate 61 63 65 Respiratory 9 L 13 11 L Rate Blood Pressure 108/57 110/65 110/65 O2 Sat by Pulse 100 100 100 Oximetry 06/18/22 06/18/22 06/18/22 16:01 16:15 16:31 Temperature Pulse Rate 63 62 61 Respiratory 12 12 12 Rate Blood Pressure 114/64 114/64 121/72 O2 Sat by Pulse 100 100 100 Oximetry - Reevaluation(s) Reevaluation #1: 06/18/22 10:34 Discussed results of H&H with patient and possibility of admission for symptomatic anemia, but patient states that she will not be admitted to the hospital and would rather just follow-up with her primary care provider. Explained to patient multiple risk of not taking blood to include but not limited to and development of more serious complications such as heart failure. I also explained to the patient the risks not being admitted for further treatment and evaluation of possible causes. Patient states that she will take blood in the ER and then be discharged home for further follow-up that she already has planned. 06/18/22 17:16 Reevaluation #2: 06/18/22 17:15 Both units of RBCs completed, patient tolerated well, lungs clear to auscultation with no shortness of breath noted. Patient states that she feels much better. 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 She states that she has been getting progressively weaker over the past several days. She states that she had the same type of symptoms about a year ago when she was anemic. She states that she had her period 2 weeks ago and her period was very heavy and lasted 7 to 8 days. She states that she has a history of recently diagnosed fibroids that her TALENT DEVELOPMENT MANAGER told her is probably the source of her increased vaginal bleeding. She states that she is scheduled to follow-up with her TALENT DEVELOPMENT MANAGER and GI doctor in the next week. Admission was suggested for patient, but she refused stating that she would prefer to follow-up with her TALENT DEVELOPMENT MANAGER and GI doctor. After discussion about risk and benefits of taking blood, she did agree to receive blood transfusion in the emergency department and then be discharged home. She states that she has a history of fibroids and just recently completed a very heavy menstrual cycle, so she thinks that her anemia is related to her heavy menstrual cycle. Patient received 2 units of packed red cells and stated that she felt much better. Patient did not have recheck of hemoglobin because she had no intentions of staying so she declined stating that she felt better and she would just follow- up as planned. Vital signs stable no acute distress noted, and weakness mostly resolved. Patient was advised to follow-up with her TALENT DEVELOPMENT MANAGER and GI doctor as previously planned. Critical care attestation.: If time is entered above; I have spent that time in minutes in the direct care of this critically ill patient, excluding procedure time. ED Disposition Clinical Impression: Anemia Qualifiers: Anemia type: unspecified type Qualified Code(s): D64.9 - Anemia, unspecified Disposition: 01 HOME / SELF CARE / HOMELESS Is pt being admited?: No Does the pt Need Aspirin: No Condition: Stable Instructions: Blood Transfusion, Adult, Care After, [id number] Additional Instructions: Follow-up with your TALENT DEVELOPMENT MANAGER and stomach doctor as previously planned. Return to the emergency department if weakness increases, you develop dizziness, if you have not any visible bleeding, or for any concerning symptoms. Referrals: NIKOLAY ROMERO MD [Primary Care Provider] - 3-5 Days Time of Disposition: 17:06
[2022-06-18 10:44] LABS: Hyaline Casts,Urine 1 /LPF; Mucus,Urine 2+ /HPF
[2022-06-18 10:47] LABS: BUN/Creatinine Ratio 14
[2022-06-18 16:43] VITALS: BP 121/72
== END 2022-06-18 17:45 | disposition home or self-care (01) ==
LOC: ED 21:09
DX: D64.9 Anemia, unspecified (principal); K21.9 Gastro-esophageal reflux disease without esophagitis; F41.9 Anxiety disorder, unspecified; F32.9 Major depressive disorder, single episode, unspecified; J45.909 Unspecified asthma, uncomplicated; Z98.890 Other specified postprocedural states; Z88.1 Allergy status to other antibiotic agents
CPT/HCPCS: 36415; 36430; 80053; 81001; 81025; 85027; 86850; 86900; 86901; 86920; 96360; 99283; J7030; J7040; P9016